=== PATIENT | female | born 1960 | race Caucasian/White ===

== ENCOUNTER 2017-01-12 10:48 | Observation (INO) ==
[2017-01-12] MEDS ORDERED: *HR* Morphine 2 MG/ML SYRINGE IVP ONE (10:59)
[2017-01-12] MEDS ORDERED: Albuterol 2.5 MG/3 ML NEBULIZER IH ONE (10:59)
[2017-01-12] MEDS ORDERED: Ondansetron 4 MG/2 ML VIAL IVP ONE (10:59)
[2017-01-12] MEDS ORDERED: Ipratropium/Albuterol Neb 3 ML IH ONE (10:59)
--- NOTE | 2017-01-12 11:02 | Emergency Department Note ---
Disposition Clinical Impression: COPD exacerbation, Influenza B Disposition: Admitted As Inpatient Condition: Good Referrals: Trev Torres, PHYSICAL METEOROLOGIST [Primary Care Provider] - Forms: ED Satisfaction Letter Time of Disposition: 12:37 SOB HPI - General Chief Complaint: ED Chest Pain Stated Complaint: chest pain, shortness of breath Time Seen by Provider: 01/12/17 10:51 Source: patient Mode of arrival: ambulatory Limitations: no limitations Nursing Notes Reviewed: Yes Vital Signs Reviewed: Yes - History of Present Illness 56-year-old white female presents complaining of cough, shortness of breath, and chest pain. Her symptoms started on Thursday with a sore throat, rhinorrhea, and cough. She was short of breath on Thursday with wheezing. She was using her nebulizer without relief. She does wear oxygen at night with her CPAP. Around 10:30 today she developed some sharp pain in her left anterior chest a and lateral to her left breast. The pain is sharp, worse with coughing. No arm or neck pain. He is at level IX. No leg pain or leg swelling. Pt Subjective Complaint: shortness of breath, cough, chest pain Onset (ago): day(s) Context: recent illness (4) Severity: moderate Consistency/Duration: constant Improves with: oxygen, rest Worsens with: coughing Known history of: COPD Associated symptoms: Reports: denies other symptoms Treatment prior to arrival: oxygen, bronchodilator Cough present: Yes Cough Description: Involuntary Cough Frequency: Intermittent Sputum production: No - Related Data Home oxygen amount: 2 liters (At night only) Previous Rx's Medication Instructions Recorded Cholecalciferol (D-3) [Vitamin D] 1,000 unit PO DAILY #30 tablet 04/29/16 Metformin [Glucophage] 500 mg PO BIDWM #60 tablet 04/29/16 Metoprolol XL (24 HR) Succ [Toprol 25 mg PO DAILY #30 tab.er.24h 04/29/16 XL] Allergies Allergy/AdvReac Type Severity Reaction Status Date / Time No Known Allergies Allergy Verified 05/18/15 11:38 All systems ED: reviewed and negative except as stated. Constitutional: Denies: fever, chills Eyes: Denies: eye discharge ENT ED: Reports: throat pain, other (Rhinorrhea). Denies: ear pain Cardiovascular: Reports: chest pain Respiratory: Reports: cough, dyspnea, wheezes. 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 Absent: scleral icterus, conjunctival injection - ENT ENT exam: normal oropharynx, mucous membranes moist, TM's normal bilaterally - Neck Neck exam: Present: normal inspection, full ROM, trachea midline. Absent: lymphadenopathy - Chest Chest inspection: Present: normal inspection, symmetric chest wall rise - Respiratory Respiratory exam: Present: wheezes (Mild bilateral expiratory, diffuse.), prolonged expiratory phase, other (Decreased breath sounds in the bases bilaterally.). Absent: accessory muscle use - Cardiovascular Cardiovascular exam: Present: regular rate, tachycardia. Absent: systolic murmur, diastolic murmur, gallop - Abdominal Exam Abdominal exam: Present: soft, Non-Tender - Extremities Exam Extremities exam: Present: normal inspection, full ROM, normal capillary refill. Absent: tenderness, pedal edema, calf tenderness - Neurological Exam Neurological exam: Present: alert, oriented X3, normal gait. Absent: motor sensory deficit - Psychiatric Psychiatric exam: Present: normal affect, anxious - Skin Skin exam: Present: warm, dry, intact, normal color. Absent: cyanosis, diaphoresis Course - Reevaluation(s) Reevaluation #1: Discussed with Dr. Gupta. He has accepted patient for admission. Time: 12:36 Vital Signs Temperature 99.9 F H 01/12/17 10:51 Pulse Rate 108 01/12/17 10:51 Respiratory Rate 22 01/12/17 10:51 Blood Pressure 137/58 01/12/17 10:51 O2 Sat by Pulse Oximetry 83 01/12/17 10:51 Temperature 99.9 F H 01/12/17 10:55 Pulse Rate 110 01/12/17 12:15 Respiratory Rate 24 01/12/17 12:15 Blood Pressure 151/80 01/12/17 12:15 O2 Sat by Pulse Oximetry 90 01/12/17 12:15 Oxygen Delivery Oxygen Delivery Nasal Cannula Shortness of Breath/Dyspnea - MDM Narrative Medical decision making narrative: Differential includes but is not limited to COPD exacerbation, bronchitis, pneumonia, pneumothorax, pleurisy, congestive heart failure, unstable angina, myocardial infarction. The patient does have influenza B. There is no evidence of pneumonia. I think she has a COPD exacerbation secondary to her influenza B infection. She has been given hand-held nebulizers 3 as well as IV Solu-Medrol. She is breathing somewhat better. She has an oxygen requirement. There is no evidence of congestive heart failure. There is no evidence of pneumothorax. I think her chest pain is pleuritic or chest wall in origin. - Lab Data Lab results reviewed: Yes I reviewed the patient's lab results. Result diagrams: 01/12/17 11:06 01/12/17 11:06 Lab Results 01/12/17 01/12/17 01/12/17 Range/Units 10:51 11:06 11:06 WBC 5.7 (4.3-11.1) K/mcL RBC 5.39 H (3.82-4.97) M/mcL Hgb 15.4 (11.5-15.4) g/dL Hct 45.2 H (35.3-44.9) % MCV 83.9 (83.0-100.0) fL MCH 28.6 (28.0-33.3) pg MCHC 34.1 (31.6-35.5) g/dL RDW 12.6 (11.5-14.5) % Plt Count 176 (140-400) K/mcL MPV 10.6 (9.4-12.4) fL Immature Gran % 0.2 (0-4) % Seg Neutrophils % 68.3 % Lymphocytes % 23.6 % Monocytes % 7.2 % Eosinophils % 0.2 % Basophils % 0.5 % Neutrophils # 3.9 (1.6-8.9) K/mcL Lymphocytes # 1.3 (0.6-4.6) K/mcL Monocytes # 0.4 (0.0-1.3) K/mcL Eosinophils # 0.0 (0.0-0.6) K/mcL Basophils # 0.0 (0.0-0.2) K/mcL ABG pH 7.38 (7.32-7.45) pH Units ABG pCO2 49 H (35-45) mmHg ABG pO2 48 L* (85-104) mmHg ABG HCO3 29 H (21-27) mEQ/L ABG Total CO2 30.5 H (20-26) mEq/L ABG O2 Saturation 82 L (95-98) % ABG Base Excess 2.9 (-2.0 to 3.0) mEq/L Blood Gas Modality RA Sodium 134 L (136-145) mEq/L Potassium 3.1 L (3.5-4.5) mEq/L Chloride 90 L (98-109) mEq/L Carbon Dioxide 29 (19-29) mEq/L BUN 7 (7-20) mg/dL Creatinine 0.76 (0.57-1.11) mg/dL Est GFR ( Amer) > 60 (> 60) Est GFR (Non-Af Amer) > 60 (> 60) BUN/Creatinine Ratio 9 (6-26) Glucose 369 H (70-99) mg/dL Calculated Osmolality 291 (280-300) Calcium 8.9 (8.6-10.8) mg/dL Total Bilirubin 0.3 (0.2-1.2) mg/dL AST 27 (5-34) Units/L ALT 21 (0-55) Units/L Alkaline Phosphatase 108 (38-126) Units/L Troponin I (0-0.03) ng/mL B-Natriuretic Peptide (0-100) pg/mL Serum Total Protein 7.2 (6.0-8.3) g/dL Albumin 3.4 L (3.5-5.0) g/dL Globulin 3.8 H (2.4-3.5) g/dL Albumin/Globulin Ratio 0.9 L (1.1-2.2) 01/12/17 01/12/17 Range/Units 11:06 11:06 WBC (4.3-11.1) K/mcL RBC (3.82-4.97) M/mcL Hgb (11.5-15.4) g/dL Hct (35.3-44.9) % MCV (83.0-100.0) fL MCH (28.0-33.3) pg MCHC (31.6-35.5) g/dL RDW (11.5-14.5) % Plt Count (140-400) K/mcL MPV (9.4-12.4) fL Immature Gran % (0-4) % Seg Neutrophils % % Lymphocytes % % Monocytes % % Eosinophils % % Basophils % % Neutrophils # (1.6-8.9) K/mcL Lymphocytes # (0.6-4.6) K/mcL Monocytes # (0.0-1.3) K/mcL Eosinophils # (0.0-0.6) K/mcL Basophils # (0.0-0.2) K/mcL ABG pH (7.32-7.45) pH Units ABG pCO2 (35-45) mmHg ABG pO2 (85-104) mmHg ABG HCO3 (21-27) mEQ/L ABG Total CO2 (20-26) mEq/L ABG O2 Saturation (95-98) % ABG Base Excess (-2.0 to 3.0) mEq/L Blood Gas Modality Sodium (136-145) mEq/L Potassium (3.5-4.5) mEq/L Chloride (98-109) mEq/L Carbon Dioxide (19-29) mEq/L BUN (7-20) mg/dL Creatinine (0.57-1.11) mg/dL Est GFR ( Amer) (> 60) Est GFR (Non-Af Amer) (> 60) BUN/Creatinine Ratio (6-26) Glucose (70-99) mg/dL Calculated Osmolality (280-300) Calcium (8.6-10.8) mg/dL Total Bilirubin (0.2-1.2) mg/dL AST (5-34) Units/L ALT (0-55) Units/L Alkaline Phosphatase (38-126) Units/L Troponin I 0.02 (0-0.03) ng/mL B-Natriuretic Peptide 14 (0-100) pg/mL Serum Total Protein (6.0-8.3) g/dL Albumin (3.5-5.0) g/dL Globulin (2.4-3.5) g/dL Albumin/Globulin Ratio (1.1-2.2) - Radiology Data Radiology results reviewed: Yes I reviewed the patient's radiology results. ITS Impressions Chest X-Ray 01/12/17 10:59 IMPRESSION: 1. Mild vascular congestion without overt failure. D/ / 01/12/2017 11:37:16 Carmen Mahoney MD / hero Interpreting Provider: Carmen Mahoney MD - EKG Data EKG attestation: Yes I reviewed and interpreted this EKG. EKG results narrative: Sinus tachycardia, rate 107, left atrial enlargement, nonspecific ST-T changes. Rhythm strip shows sinus tachycardia with rate 107, irritable bladder and 80 ms, QRS 105 ms with no other ectopy as interpreted by me. This is compared to tracing dated 04/28/16, no significant change.
[2017-01-12 11:13] LABS: Basophils % 0.5 %; Eosinophils % 0.2 %; Hematocrit 45.2 % (35.3-44.9); Hemoglobin 15.4 g/dL (11.5-15.4); Immature Granulocytes % 0.2 % (0-4); Lymphocytes # 1.3 K/mcL (0.6-4.6); Lymphocytes % 23.6 %; Mean Corpuscular HGB Conc 34.1 g/dL (31.6-35.5); Mean Corpuscular Hemoglobin 28.6 pg (28.0-33.3); Mean Corpuscular Volume 83.9 fL (83.0-100.0); Mean Platelet Volume 10.6 fL (9.4-12.4); Monocytes # 0.4 K/mcL (0.0-1.3); Monocytes % 7.2 %; Neutrophils # 3.9 K/mcL (1.6-8.9); Platelet Count 176 K/mcL (140-400); Red Blood Count 5.39 M/mcL (3.82-4.97); Red Cell Distribution Width 12.6 % (11.5-14.5); Segmented Neutrophils % 68.3 %
[2017-01-12 11:24] LABS: ABG PCO2 49 mmHg (35-45); ABG PH 7.38 pH Units (7.32-7.45)
[2017-01-12 11:25] LABS: ABG PO2 48 mmHg (85-104)
[2017-01-12 11:26] LABS: ABG Base Excess 2.9 mEq/L (-2.0 to 3.0); ABG HCO3 29 mEQ/L (21-27); ABG Oxygen Saturation 82 % (95-98); ABG TCO2 30.5 mEq/L (20-26)
[2017-01-12 11:29] LABS: Alanine Aminotransferase 21 Units/L (0-55); Albumin 3.4 g/dL (3.5-5.0); Albumin/Globulin Ratio 0.9 (1.1-2.2); Alkaline Phosphatase 108 Units/L (38-126); Aspartate Amino Transferase 27 Units/L (5-34); BUN/Creatinine Ratio 9 (6-26); Bilirubin,Total 0.3 mg/dL (0.2-1.2); Blood Urea Nitrogen 7 mg/dL (7-20); Calcium 8.9 mg/dL (8.6-10.8); Carbon Dioxide 29 mEq/L (19-29); Chloride 90 mEq/L (98-109); Globulin 3.8 g/dL (2.4-3.5); Glucose 369 mg/dL (70-99); Osmolality,Calculated 291 (280-300); Potassium 3.1 mEq/L (3.5-4.5); Sodium 134 mEq/L (136-145); Total Protein 7.2 g/dL (6.0-8.3); eGFR For African Americans > 60 (> 60); eGFR For Non-African Americans > 60 (> 60)
[2017-01-12] MEDS ORDERED: *HR* HYDROcodone/Acet 5/325 mg TABLET PO ONE (11:53)
[2017-01-12] MEDS ORDERED: Ipratropium/Albuterol Neb 3 ML IH SCH ×2 (13:40→16:00)
[2017-01-12] MEDS ORDERED: Naloxone 0.4 MG/ML INJ IVP PRN (13:40)
[2017-01-12] MEDS ORDERED: D5% in Water 1,000 ML IVC PRN (13:59)
[2017-01-12] MEDS ORDERED: Dextrose Gel 15 GM PO PRN ×2 (13:59)
[2017-01-12] MEDS ORDERED: *HR* Dextrose 50 % in Water (Syg) 50 ML SYRINGE IVP PRN (13:59)
--- NOTE | 2017-01-12 15:53 | Internal Med History&Physical ---
Date of Encounter: 01/12/17 Time of Encounter: 15:35 Assessment and Plan (1) Influenza B Current visit: Yes Status: Acute She has been started on Tamiflu. Further workup will be done as needed. (2) Hypokalemia Current visit: Yes Status: Acute She will be given supplemental potassium. Follow-up labs will be done in a.m. Internal Medicine - H&P: HPI Chief complaint: Cough, dyspnea, fever Admitted From: Home Plans for Post Hospital Care: Home History of present illness: Ms. Hooks is a 56 year old female who came to emergency room stating she had onset of nonproductive cough, fever, and rhinorrhea with worsening dyspnea on January 09. She did not seek medical attention. She continued home albuterol nebulizer treatment. When she did not improved she came to emergency room today for evaluation. She was found to have influenza B and was admitted to [facility] floor for ongoing care needs. She states she took a flu shot fall 2015. Her respiratory history is significant for having smoked since age 12 up to 2-1/2 packs per day. She has a diagnosis of COPD and wears oxygen at home as needed. She has a diagnosis of FAIZA and wears CPAP at bedtime. Past Med Surg Social Fam HX - Past Medical History Medical history: COPD, diabetes, hyperlipidemia, hypertension, other Psychiatric history: anxiety, depression - Past Surgical History Surgical History: cholecystectomy, hysterectomy - Social History Smoking Status: Former smoker Smokeless Tobacco Status: No Alcohol use: none Drug use: none - Family History Son Adopted: No Family Member Ethnicity: Non- Living Status: Still Living Hx Family Cardiac Disorders: No Hx Family Respiratory Disorders: No Hx Family Cancer: No Hx Family GI Disorders: No Hx Family Endocrine Disorder: No Hx Family Neuromuscular Disorders: No Hx Family Neurologic Disorders: No Hx Family HEENT Disorders: No Hx Family Autoimmune Disorders: No Internal Medicine - H&P: Meds Cholecalciferol (D-3) [Vitamin D] 1,000 unit PO DAILY #30 tablet 04/29/16 [Rx] Metformin [Glucophage] 500 mg PO BIDWM #60 tablet 04/29/16 [Rx] Metoprolol XL (24 HR) Succ [Toprol XL] 25 mg PO DAILY #30 tab.er.24h 04/29/16 [ Rx] Allergies No Known Allergies Allergy (Verified 05/18/15 11:38) All Systems PM: A 10-system review of systems was performed and is negative for pertinent findings except as documented above in the HPI. Review of systems: Gen.: Her weight has been stable at approximately 96 kg since the April 2016 hospitalization. Cardiovascular: She has history of hypertension. She thinks she has history of CHF but she had echocardiogram done March 2014 which showed LVEF of 60% with no significant valvular abnormalities. She had a nuclear medicine stress test also at that time which showed no ischemic changes and LVEF of 56%. She denies DVT or pulmonary embolus. Respiratory: As per history of present illness GI: She has had cholecystectomy but denies disorders of her liver or exocrine pancreas : She had acute kidney injury in 2013 with full return of function with conservative treatment. She denies other kidney or bladder disorders. Neurologic: He has a history of migraine headaches many years ago. She denies large distribution strokes or seizures. Endocrine: She was diagnosed with DM 2 approximately 2012. She denies thyroid disease or hyperlipidemia Hematology/oncology: She denies blood disorders cancers or anemia Psychiatric: She has history of anxiety and depression Musk skeletal: She has DJD denies gout or other bone joint or muscle disorders. - Constitutional Vitals: Temp Pulse Resp BP Pulse Ox 99.0 F 101 20 132/65 92 01/12/17 13:40 01/12/17 13:40 01/12/17 15:09 01/12/17 13:40 01/12/17 15:09 Exam: General: She is well-developed well-nourished female who appears in no significant distress at present time. HEENT: Head is atraumatic and normal cephalic. Eyes: EOMI. There is no scleral icterus. Mouth: Mucosa is moist. Neck: Supple and nontender. There is no thyromegaly or adenopathy noted. Heart: Regular without murmurs gallops or ectopics. Lungs: She has diminished breath sounds diffusely. There is no egophony or wheezing. Abdomen: Soft and nontender. No masses or guarding are noted. Extremities: There is no cyanosis edema or clubbing noted. Dorsalis pedis and posterior tibial pulses are 1-2 over 2 bilaterally. Neurologic: Mental status: She is talkative and a good historian. Cranial nerves: Smile is symmetric. Forehead wrinkles bilaterally. Tongue protrudes midline. EOMI. Motor: There is no pronator drift. Cerebellar: Finger to nose is intact bilaterally. Skin: Warm and dry Internal Med - H&P Results - Labs CBC & Chem 7: 01/12/17 11:06 01/12/17 11:06
[2017-01-12] MEDS ORDERED: Albuterol 2.5 MG/3 ML NEBULIZER IH PRN (16:01)
[2017-01-12] MEDS: PredniSONE 10 MG TABLET PO SCH (16:59)
[2017-01-12] MEDS: Insulin LISPRO 300 UNITS/3 ML VIAL SQ SCH (17:00)
--- NOTE | 2017-01-12 19:03 | Electrocardiograph Report ---
[address] [address] Test Date: 2017-01-12 Pat Name: Betsy Hooks Department: [id number] Room: [facility] Gender: F Approver: [id number] : 1960 Requested By: Yuriy Cobb Order Number: [id number] Reading MD: Justin Collins MD Measurements Intervals [place] Rate: 107 P: 76 PA: 180 QRS: 56 QRSD: 105 T: 73 QT: 405 QTc: 468 Interpretive Statements SINUS TACHYCARDIA BASELINE ARTIFACT LEFT ATRIAL ENLARGEMENT Electronically Signed On 01-12-2017 19:02:02 EDT by Justin Collins MD
[2017-01-12] MEDS: Acetaminophen 325 MG TABLET PO PRN (20:28)
[2017-01-12] MEDS ORDERED: Insulin LISPRO 300 UNITS/3 ML VIAL SQ SCH (21:00)
[2017-01-13] MEDS ORDERED: Benzonatate 100 MG CAPSULE PO SCH (03:45)
[2017-01-13 06:56] LABS: Basophils % 0.2 %; Hematocrit 45.3 % (35.3-44.9); Hemoglobin 15.7 g/dL (11.5-15.4); Immature Granulocytes % 0.4 % (0-4); Lymphocytes # 1.1 K/mcL (0.6-4.6); Mean Corpuscular HGB Conc 34.7 g/dL (31.6-35.5); Mean Corpuscular Volume 83.7 fL (83.0-100.0); Mean Platelet Volume 10.7 fL (9.4-12.4); Monocytes # 0.4 K/mcL (0.0-1.3); Monocytes % 7.9 %; Neutrophils # 3.3 K/mcL (1.6-8.9); Platelet Count 186 K/mcL (140-400); Red Blood Count 5.41 M/mcL (3.82-4.97); Red Cell Distribution Width 12.2 % (11.5-14.5); Segmented Neutrophils % 69.5 %
[2017-01-13] MEDS: PredniSONE 10 MG TABLET PO SCH (07:00)
[2017-01-13] MEDS: Acetaminophen 325 MG TABLET PO PRN (07:00)
[2017-01-13] MEDS: Insulin LISPRO 300 UNITS/3 ML VIAL SQ SCH (07:01)
[2017-01-13 07:02] LABS: BUN/Creatinine Ratio 16 (6-26); Blood Urea Nitrogen 10 mg/dL (7-20); Calcium 9.3 mg/dL (8.6-10.8); Carbon Dioxide 29 mEq/L (19-29); Chloride 94 mEq/L (98-109); Glucose 265 mg/dL (70-99); Osmolality,Calculated 292 (280-300); Potassium 3.3 mEq/L (3.5-4.5); Sodium 137 mEq/L (136-145); eGFR For African Americans > 60 (> 60); eGFR For Non-African Americans > 60 (> 60)
--- NOTE | 2017-01-13 08:27 | Discharge Summary ---
Date of Encounter: 01/13/17 Time of Encounter: 08:20 - Discharge Diagnosis (1) Influenza B Priority: Primary Status: Acute (2) Hypokalemia Priority: Secondary Status: Acute - Discharge Medications Prescriptions: Metoprolol XL (24 HR) Succ [Toprol XL] 25 mg PO DAILY #30 tab.er.24h Oseltamivir [Tamiflu] 75 mg PO BID #8 capsule Potassium Chloride 20 meq PO DAILY #30 tab.er.prt Home Medications: Cholecalciferol (D-3) [Vitamin D] 1,000 unit PO DAILY #30 tablet 04/29/16 [Rx] Metformin [Glucophage] 500 mg PO BIDWM #60 tablet 04/29/16 [Rx] Metoprolol XL (24 HR) Succ [Toprol Xl] 25 mg PO DAILY #30 tab.er.24h 04/29/16 [ Rx] Metoprolol XL (24 HR) Succ [Toprol XL] 25 mg PO DAILY #30 tab.er.24h 01/13/17 [ Rx] Oseltamivir [Tamiflu] 75 mg PO BID #8 capsule 01/13/17 [Rx] Potassium Chloride 20 meq PO DAILY #30 tab.er.prt 01/13/17 [Rx] Allergies/Adverse Reactions: Allergies No Known Allergies Allergy (Verified 05/18/15 11:38) Date of admission: 01/12/17 13:06 Primary care physician: Trev Torres CNP - Patient Status Disposition: Home, Self-Care Condition: Good Overall status at discharge: patient is progressing back to baseline - Discharge Instructions Follow Up With: Trev Torres CNP [Primary Care Provider] - 1 week - Diet and Activity Activity: resume usual activities as tolerated, wear oxygen at all times Diet: advance to your usual diet Hospital course: Ms. Hooks is a 56 year old female who came to emergency room stating she had onset of nonproductive cough, fever, and rhinorrhea with worsening dyspnea on January 09. She did not seek medical attention. She continued home albuterol nebulizer treatment. When she did not improved she came to emergency room today for evaluation. She was found to have influenza B and was admitted to [facility] for ongoing care needs. Initial orders were written by the emergency room physician. I saw her on January 12 and performed a history and physical. She was started on Tamiflu and her temperature improved. She had minimally productive cough throughout the hospitalization. Her vital signs remained stable otherwise except for occasional tachycardia. She will be started on Toprol XL at discharge to improve blood pressure control and lower heart rate. She will continue her other blood pressure medications as at home. She was started on supplemental potassium for hypokalemia. She will continue KCl 20 mEq daily at discharge. She was encouraged to remain a nonsmoker. She will continue with oxygen 24/7 at home. She will follow with her PCP Trev Torres CNP within 1 week. - Time Spent with Patient Total time spent providing and/or coordinating discharge services: - Constitutional Vitals: Temp Pulse Resp BP Pulse Ox 99.0 F 96 18 137/69 94 01/13/17 04:45 01/13/17 04:45 01/13/17 04:45 01/13/17 04:45 01/13/17 04:45
[2017-01-13 12:07] VITALS: BP 140/68
== END 2017-01-13 11:20 | disposition home or self-care (01) ==
LOC: EMEROOPIK 10:48 → INPPIK 10:48
PROVIDERS: ADMIT Internal Medicine; ATTEND Internal Medicine

== ENCOUNTER 2017-01-16 17:18 | Observation (INO) ==
[2017-01-16 18:20] LABS: Basophils % 0.3 %; Eosinophils % 0.2 %; Hematocrit 44.2 % (35.3-44.9); Hemoglobin 15.5 g/dL (11.5-15.4); Immature Granulocytes % 0.3 % (0-4); Lymphocytes # 2.7 K/mcL (0.6-4.6); Lymphocytes % 18.2 %; Mean Corpuscular HGB Conc 35.1 g/dL (31.6-35.5); Mean Corpuscular Hemoglobin 28.8 pg (28.0-33.3); Monocytes # 0.7 K/mcL (0.0-1.3); Monocytes % 4.4 %; Neutrophils # 11.4 K/mcL (1.6-8.9); Platelet Count 229 K/mcL (140-400); Red Blood Count 5.39 M/mcL (3.82-4.97); Red Cell Distribution Width 11.9 % (11.5-14.5); Segmented Neutrophils % 76.6 %
[2017-01-16 18:31] LABS: Alanine Aminotransferase 15 Units/L (0-55); Albumin 3.4 g/dL (3.5-5.0); Albumin/Globulin Ratio 0.8 (1.1-2.2); Alkaline Phosphatase 109 Units/L (38-126); Aspartate Amino Transferase 17 Units/L (5-34); BUN/Creatinine Ratio 10 (6-26); Bilirubin,Total 0.9 mg/dL (0.2-1.2); Blood Urea Nitrogen 7 mg/dL (7-20); Calcium 9.1 mg/dL (8.6-10.8); Carbon Dioxide 31 mEq/L (19-29); Chloride 92 mEq/L (98-109); Globulin 4.2 g/dL (2.4-3.5); Glucose 259 mg/dL (70-99); Lipase 8 Units/L (8-78); Osmolality,Calculated 289 (280-300); Potassium 2.5 mEq/L (3.5-4.5); Sodium 136 mEq/L (136-145); Total Protein 7.6 g/dL (6.0-8.3); eGFR For African Americans > 60 (> 60); eGFR For Non-African Americans > 60 (> 60)
[2017-01-16] MEDS ORDERED: 0.9 % Sodium Chloride 1,000 ML IVC ONE (18:31)
--- NOTE | 2017-01-16 18:32 | Emergency Department Note ---
Disposition Clinical Impression: Abdominal pain, COPD (chronic obstructive pulmonary disease), FAIZA (obstructive sleep apnea), Hypokalemia Disposition: Admitted As Inpatient Condition: Fair Time of Disposition: 19:13 (obsv rachel) Abdominal Pain HPI - General Chief Complaint: ED Abdominal Pain Stated Complaint: difficulty in breathing, abd pain Source: patient Mode of arrival: ambulatory Limitations: no limitations Nursing Notes Reviewed: Yes Vital Signs Reviewed: Yes - History of Present Illness HPI Narrative: Patient comes in complaining of symptoms since she was discharged with flulike symptoms since Thursday not been able to eat or drink paste that she has been eating or drinking at least a week since she is unable to keep anything down she denies any fevers or chills she denies any joint aches states that she just aches all over states her belly hurts denies any blurred vision double vision loss is noticed weakness rashes or lesions Pt Subjective Complaint: abdominal pain, other (recent pneumonia) Onset (ago): week(s) (1) Consistency: constant Location: diffuse Pain Severity: severe Pain Scale: 10 Quality: cramping Improves with: nothing Worsens with: nothing Associated symptoms: Reports: nausea, vomiting, diarrhea, fever, other (diarrhea ). Denies: chills, constipation, dysuria, hematemesis, hematochezia, melena, hematuria, anorexia, syncope Treatments prior to arrival: NSAIDs, prescription analgesics, other (antibiotics ) - Related Data Previous Rx's Medication Instructions Recorded Metformin [Glucophage] 500 mg PO BIDWM #60 tablet 04/29/16 Metoprolol XL (24 HR) Succ [Toprol 25 mg PO DAILY #30 tab.er.24h 01/13/17 XL] Oseltamivir [Tamiflu] 75 mg PO BID #8 capsule 01/13/17 Potassium Chloride 20 meq PO DAILY #30 tab.er.prt 01/13/17 Allergies Allergy/AdvReac Type Severity Reaction Status Date / Time No Known Allergies Allergy Verified 01/16/17 17:19 All systems ED: reviewed and negative except as stated. Constitutional: Reports: fever, chills, weakness Eyes: Denies: eye pain, eye discharge ENT ED: Reports: congestion. Denies: ear pain, throat pain Cardiovascular: Denies: chest pain, palpitations Respiratory: Reports: cough, dyspnea, wheezes, sputum production Gastrointestinal: Reports: abdominal pain, nausea, vomiting, diarrhea Genitourinary: Denies: urgency, dysuria, frequency Musculoskeletal: Denies: back pain, neck pain Integumentary: Denies: abrasion, lesions Neurological: Denies: headache Psychiatric: Denies: anxiety, depression Endocrine: Reports: fatigue Hematological/Lymphatic: Denies: easy bleeding Allergic/Immunologic: Denies: urticaria Abdominal Pain PMH - Past Medical History Medical history: Reports: COPD, diabetes, hyperlipidemia, hypertension, other Female Surgical History: Reports: cholecystectomy, other 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: Reports: no 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 Psychiatric history: Reports: anxiety, depression - Social History Smoking status: Former smoker Alcohol use: Reports: none Drug use: Reports: none Physical Exam - General Limitations: no limitations General appearance: alert, in no apparent distress, anxious - Head Head exam: atraumatic, normocephalic, normal inspection - Eye Eye exam: Present: normal appearance, PERRL, EOMI - ENT ENT exam: normal exam, normal oropharynx, mucous membranes moist, normal external ear exam - Neck Neck exam: Present: normal inspection, full ROM, trachea midline - Chest Chest inspection: Present: normal inspection, symmetric chest wall rise - Respiratory Respiratory exam: Present: normal lung sounds bilaterally - Cardiovascular Cardiovascular exam: Present: regular rate, normal rhythm, normal heart sounds - Abdominal Exam Abdominal exam: Present: soft, Non-Tender, distention, guarding, normal bowel sounds. Absent: mass, pulsatile mass - Extremities Exam Extremities exam: Present: normal inspection, full ROM, normal capillary refill. Absent: tenderness, joint swelling - Expanded Lower Extremity Exam Neurovascular/Tendon exam: Present: normal capillary refill, normal fine/light touch Gait: observed and normal - Back Exam Back exam: Present: normal inspection, full ROM. Absent: muscle spasm - Neurological Exam Neurological exam: Present: alert, oriented X3, CN II-XII intact, normal gait - Psychiatric Psychiatric exam: Present: normal affect, normal mood - Skin Skin exam: Present: warm, dry, intact, normal color Course Course Narrative: They should seem given IV fluids patient was noted to have hypokalemia occurring she is given a potassium rider admitted for observation because the decreased potassium transferred to [facility] - Reevaluation(s) Reevaluation #1: Patient's been up to the bathroom O times patient was given pain medication patient was noted to have hypokalemia as a result patient was given medication admitted for observation Vital Signs Temperature 97.6 F 01/16/17 17:21 Pulse Rate 101 01/16/17 17:21 Respiratory Rate 20 01/16/17 17:21 Blood Pressure 134/63 01/16/17 17:21 O2 Sat by Pulse Oximetry 89 01/16/17 17:21 Temperature 97.6 F 01/16/17 17:23 Pulse Rate 89 01/16/17 20:40 Respiratory Rate 18 01/16/17 20:40 Blood Pressure 127/59 01/16/17 20:40 O2 Sat by Pulse Oximetry 92 01/16/17 20:40 Oxygen Delivery Oxygen Delivery Nasal Cannula Abdominal Pain - Differential Diagnosis Differential Diagnosis: Likely: abdominal pain non-specific - Medical Records Medical records reviewed: Yes I reviewed the patient's medical records. - Lab Data Lab results reviewed: Yes I reviewed the patient's lab results. Result diagrams: 01/16/17 17:55 01/16/17 17:55 Lab Results 01/16/17 01/16/17 01/16/17 Range/Units 17:55 17:55 17:55 WBC 14.9 H D (4.3-11.1) K/mcL RBC 5.39 H (3.82-4.97) M/mcL Hgb 15.5 H (11.5-15.4) g/dL Hct 44.2 (35.3-44.9) % MCV 82.0 L (83.0-100.0) fL MCH 28.8 (28.0-33.3) pg MCHC 35.1 (31.6-35.5) g/dL RDW 11.9 (11.5-14.5) % Plt Count 229 (140-400) K/mcL MPV 11.0 (9.4-12.4) fL Immature Gran % 0.3 (0-4) % Seg Neutrophils % 76.6 % Lymphocytes % 18.2 % Monocytes % 4.4 % Eosinophils % 0.2 % Basophils % 0.3 % Neutrophils # 11.4 H (1.6-8.9) K/mcL Lymphocytes # 2.7 (0.6-4.6) K/mcL Monocytes # 0.7 (0.0-1.3) K/mcL Eosinophils # 0.0 (0.0-0.6) K/mcL Basophils # 0.0 (0.0-0.2) K/mcL PT (9.4-12.1) Seconds INR APTT 27.6 (26.0-36.0) Seconds Sodium 136 (136-145) mEq/L Potassium 2.5 L* (3.5-4.5) mEq/L Chloride 92 L (98-109) mEq/L Carbon Dioxide 31 H (19-29) mEq/L BUN 7 (7-20) mg/dL Creatinine 0.73 (0.57-1.11) mg/dL Est GFR ( Amer) > 60 (> 60) Est GFR (Non-Af Amer) > 60 (> 60) BUN/Creatinine Ratio 10 (6-26) Glucose 259 H (70-99) mg/dL Calculated Osmolality 289 (280-300) Calcium 9.1 (8.6-10.8) mg/dL Total Bilirubin 0.9 (0.2-1.2) mg/dL AST 17 (5-34) Units/L ALT 15 (0-55) Units/L Alkaline Phosphatase 109 (38-126) Units/L Troponin I (0-0.03) ng/mL Serum Total Protein 7.6 (6.0-8.3) g/dL Albumin 3.4 L (3.5-5.0) g/dL Globulin 4.2 H (2.4-3.5) g/dL Albumin/Globulin Ratio 0.8 L (1.1-2.2) Lipase 8 (8-78) Units/L 01/16/17 01/16/17 Range/Units 17:55 17:55 WBC (4.3-11.1) K/mcL RBC (3.82-4.97) M/mcL Hgb (11.5-15.4) g/dL Hct (35.3-44.9) % MCV (83.0-100.0) fL MCH (28.0-33.3) pg MCHC (31.6-35.5) g/dL RDW (11.5-14.5) % Plt Count (140-400) K/mcL MPV (9.4-12.4) fL Immature Gran % (0-4) % Seg Neutrophils % % Lymphocytes % % Monocytes % % Eosinophils % % Basophils % % Neutrophils # (1.6-8.9) K/mcL Lymphocytes # (0.6-4.6) K/mcL Monocytes # (0.0-1.3) K/mcL Eosinophils # (0.0-0.6) K/mcL Basophils # (0.0-0.2) K/mcL PT 12.2 H (9.4-12.1) Seconds INR 1.1 APTT (26.0-36.0) Seconds Sodium (136-145) mEq/L Potassium (3.5-4.5) mEq/L Chloride (98-109) mEq/L Carbon Dioxide (19-29) mEq/L BUN (7-20) mg/dL Creatinine (0.57-1.11) mg/dL Est GFR ( Amer) (> 60) Est GFR (Non-Af Amer) (> 60) BUN/Creatinine Ratio (6-26) Glucose (70-99) mg/dL Calculated Osmolality (280-300) Calcium (8.6-10.8) mg/dL Total Bilirubin (0.2-1.2) mg/dL AST (5-34) Units/L ALT (0-55) Units/L Alkaline Phosphatase (38-126) Units/L Troponin I 0.02 (0-0.03) ng/mL Serum Total Protein (6.0-8.3) g/dL Albumin (3.5-5.0) g/dL Globulin (2.4-3.5) g/dL Albumin/Globulin Ratio (1.1-2.2) Lipase (8-78) Units/L - Radiology Data Radiology results reviewed: Yes I reviewed the patient's radiology results. ITS Impressions Abdomen/Pelvis CT 01/16/17 17:59 IMPRESSION: No acute process D/ / Ramiro Moore MD / Ramiro Moore MD Interpreting Provider: Ramiro Moore MD Chest CT 01/16/17 17:59 IMPRESSION: No acute process D/ / Ramiro Moore MD / Ramiro Moore MD Interpreting Provider: Ramiro Moore MD - EKG Data EKG attestation: Yes I reviewed and interpreted this EKG. EKG results narrative: Sinus nonspecific T waves rate 93 [place] 188 QRS 108 QT 369 axis XIX Critical Care Time Critical Care Time: Yes Total Critical Care Time: 15 Attestation: Critical care performed:15 mins as result of patient having hypokalemia patient symptomatic with that patient admitted for IV potassium supplementation because the risk of cardiac arrhythmias with low potassium Time is exclusive of separately billable procedures. Time includes: direct patient care, patient reassessment, coordination of patient care, interpretation of data (laboratory data, radiology data, and respiratory data), review of patient's medical records, medical consultation and documentation of patient care. Procedures included in critical care time: Procedures excluded from critical care time:
[2017-01-16 18:44] LABS: INR 1.1; Prothrombin Time 12.2 Seconds (9.4-12.1)
[2017-01-16] MEDS ORDERED: *HR* HYDROmorphone (PF) 1 MG/ML SYRINGE IVP ONE (19:48)
[2017-01-16] MEDS ORDERED: *HR* Promethazine 25 MG/ML VIAL IVP ONE (19:48)
[2017-01-16] MEDS ORDERED: 0.9 % Sodium Chloride 1,000 ML ONE (20:13)
[2017-01-16] MEDS ORDERED: Ondansetron 4 MG/2 ML VIAL IVP PRN (21:11)
[2017-01-16] MEDS ORDERED: *HR* Dextrose 50 % in Water (Syg) 50 ML SYRINGE IVP PRN (21:11)
[2017-01-16] MEDS ORDERED: Naloxone 0.4 MG/ML INJ IVP PRN (21:11)
[2017-01-16] MEDS ORDERED: Ibuprofen 400 MG TABLET PO PRN (21:11)
[2017-01-16] MEDS ORDERED: Dextrose Gel 15 GM PO PRN ×2 (21:11)
[2017-01-16] MEDS ORDERED: D5% in Water 1,000 ML IVC PRN (21:11)
[2017-01-16] MEDS: Acetaminophen 325 MG TABLET PO PRN (23:05)
[2017-01-16] MEDS: 0.9 % Sodium Chloride 1,000 ML IVC SCH (23:09)
[2017-01-17] MEDS: Albuterol 2.5 MG/3 ML NEBULIZER IH PRN ×2 (04:22→09:36)
[2017-01-17 06:03] LABS: Basophils % 0.3 %; Eosinophils # 0.1 K/mcL (0.0-0.6); Eosinophils % 0.6 %; Hematocrit 43.2 % (35.3-44.9); Hemoglobin 14.8 g/dL (11.5-15.4); Immature Granulocytes % 0.3 % (0-4); Lymphocytes % 23.6 %; Mean Corpuscular HGB Conc 34.3 g/dL (31.6-35.5); Mean Corpuscular Hemoglobin 28.8 pg (28.0-33.3); Mean Corpuscular Volume 84.2 fL (83.0-100.0); Mean Platelet Volume 10.6 fL (9.4-12.4); Monocytes # 0.7 K/mcL (0.0-1.3); Monocytes % 5.2 %; Neutrophils # 8.8 K/mcL (1.6-8.9); Platelet Count 224 K/mcL (140-400); Red Blood Count 5.13 M/mcL (3.82-4.97)
[2017-01-17 06:22] LABS: INR 1.1; Prothrombin Time 11.8 Seconds (9.4-12.1)
[2017-01-17 06:23] LABS: BUN/Creatinine Ratio 8 (6-26); Carbon Dioxide 31 mEq/L (19-29); Chloride 99 mEq/L (98-109); Glucose 270 mg/dL (70-99); Osmolality,Calculated 301 (280-300); Sodium 142 mEq/L (136-145); eGFR For African Americans > 60 (> 60); eGFR For Non-African Americans > 60 (> 60)
[2017-01-17 06:25] LABS: Activated Partial Thrombo Time 26.6 Seconds (26.0-36.0)
[2017-01-17 06:40] LABS: Blood Urea Nitrogen 5 mg/dL (7-20)
[2017-01-17] MEDS: Acetaminophen 325 MG TABLET PO PRN (09:01)
[2017-01-17] MEDS ORDERED: *HR* Promethazine 25 MG/ML VIAL IVP ONE (09:35)
[2017-01-17] MEDS: *HR* Metformin 500 MG TABLET PO SCH ×2 (09:49→17:17)
[2017-01-17] MEDS: Insulin LISPRO 300 UNITS/3 ML VIAL SQ SCH ×3 (09:49→17:45)
[2017-01-17] MEDS: Metoprolol XL (24 HR) Succ 25 MG TAB.ER.24H PO SCH (09:49)
[2017-01-17] MEDS: 0.9 % Sodium Chloride 1,000 ML IVC SCH (11:16)
--- NOTE | 2017-01-17 14:50 | Internal Med History&Physical ---
Date of Encounter: 01/17/17 Time of Encounter: 14:20 Assessment and Plan (1) Influenza B Current visit: No Status: Acute She states she had 2 Tamiflu pills left when she came to emergency room yesterday. She has been given Tamiflu since admission and it will now be discontinued. (2) Abdominal pain Current visit: Yes Status: Acute She states it is present in the epigastric and mid abdominal area now. CT done in the emergency room did not show significant pathology. Observe without further workup or treatment at this time. Qualifiers: Abdominal location: generalized Qualified Code(s): R10.84 - Generalized abdominal pain (3) DM type 2 (diabetes mellitus, type 2) Current visit: No Status: Chronic Hemoglobin A1c was 9.0% on 01/13/2017. Will do Accu-Cheks with SSI. 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 Recheck in a.m. (5) Low TSH level Current visit: Yes Status: Acute TSH was suppressed to 0.24 on 04/29/2016. We will recheck in a.m. Internal Medicine - H&P: HPI Chief complaint: Nausea and diarrhea Admitted From: Home Plans for Post Hospital Care: Home History of present illness: Ms. Hooks is a 56 year old female who came to emergency room stating she had nausea but no vomiting, intermitted abdominal pain, and diarrhea since she left the hospital January 13. She had been admitted January 12 with the diagnosis of influenza B. She was given Tamiflu during and after discharge. She was also started on Toprol-XL and supplemental potassium. She states she had almost no food intake after her arrival home until she came back emergency room. She reports running fevers 103 at home and having chills. She states her cough is productive of greenish sputum. She states her stools were loose watery brown in color. She describes abdominal pain as an ache in her mid abdominal area. She was evaluated and emergency room again and found to have significant hypokalemia. She had leukocytosis with left shift the differential. She was admitted to [facility] floor for ongoing care needs. She states she did not miss any of her prescribed medications at home. She denies vomiting. She did not note hematochezia or melena. Past Med Surg Social Fam HX - Past Medical History Medical history: COPD, diabetes, hyperlipidemia, hypertension, other Psychiatric history: anxiety, depression - Past Surgical History Surgical History: cholecystectomy, hysterectomy - Social History Smoking Status: Former smoker Packs per day: 2 Smokeless Tobacco Status: No Alcohol use: none Drug use: none - Family History Son Adopted: No Family Member Ethnicity: Non- Living Status: Still Living Hx Family Cardiac Disorders: No Hx Family Respiratory Disorders: No Hx Family Cancer: No Hx Family GI Disorders: No Hx Family Endocrine Disorder: No Hx Family Neuromuscular Disorders: No Hx Family Neurologic Disorders: No Hx Family HEENT Disorders: No Hx Family Autoimmune Disorders: No Internal Medicine - H&P: Meds Metformin [Glucophage] 500 mg PO BIDWM #60 tablet 04/29/16 [Rx] Metoprolol XL (24 HR) Succ [Toprol XL] 25 mg PO DAILY #30 tab.er.24h 01/13/17 [ Rx] Oseltamivir [Tamiflu] 75 mg PO BID #8 capsule 01/13/17 [Rx] Potassium Chloride 20 meq PO DAILY #30 tab.er.prt 01/13/17 [Rx] Allergies No Known Allergies Allergy (Verified 01/17/17 00:29) All Systems PM: A 10-system review of systems was performed and is negative for pertinent findings except as documented above in the HPI. Review of systems: Gen.: Her weight has been stable at approximately 96 kg since the April 2016 hospitalization. Cardiovascular: She has history of hypertension. She thinks she has history of CHF but she had echocardiogram done March 2014 which showed LVEF of 60% with no significant valvular abnormalities. She had a nuclear medicine stress test also at that time which showed no ischemic changes and LVEF of 56%. She denies DVT or pulmonary embolus. Respiratory: She smoked since age 12 up to 2-1/2 packs per day. She has a diagnosis COPD and wears oxygen at home when necessary. She has a diagnosis of FAIZA and wear CPAP at bedtime. She was hospitalized a few days ago with influenza B infection. GI: She has had cholecystectomy but denies disorders of her liver or exocrine pancreas : She had acute kidney injury in 2013 with full return of function with conservative treatment. She denies other kidney or bladder disorders. Neurologic: He has a history of migraine headaches many years ago. She denies large distribution strokes or seizures. Endocrine: She was diagnosed with DM 2 approximately 2012. She denies thyroid disease or hyperlipidemia Hematology/oncology: She denies blood disorders cancers or anemia Psychiatric: She has history of anxiety and depression Musk skeletal: She has DJD denies gout or other bone joint or muscle disorders. - Constitutional Vitals: Temp Pulse Resp BP Pulse Ox 98.8 F 58 18 112/66 93 01/17/17 11:35 01/17/17 11:35 01/17/17 11:35 01/17/17 11:35 01/17/17 11:35 Exam: Gen.: She is a well-developed well-nourished female who appears in minimal distress at present time. She complains of mild abdominal pain. HEENT: Head is atraumatic and normocephalic. Eyes: EOMI. There is no scleral icterus. Mouth: Mucosa is moist. Neck: Supple and nontender. There is no thyromegaly or adenopathy noted. Heart: Regular without murmurs gallops or ectopics. Lungs: No wheezes or crackles are heard. Abdomen: Bowel sounds are present but diminished. There is mild tenderness diffusely in the abdominal area. No masses or guarding are noted. Extremities: There is no cyanosis edema or clubbing noted. Dorsalis pedis and posttibial pulses are 2 over 2 bilaterally. Neurologic: Mental status: She is talkative and a good historian. Cranial nerves: Smile is symmetric. Forehead wrinkles bilaterally. Tongue protrudes midline. EOMI. Motor: There is no pronator drift. Cerebellar: Finger to nose is intact bilaterally. Skin: Warm and dry Internal Med - H&P Results - Labs CBC & Chem 7: 01/17/17 05:35 01/17/17 05:35 Labs: Short CBC 01/17/17 Range/Units 05:35 WBC 12.6 H (4.3-11.1) K/mcL Hgb 14.8 (11.5-15.4) g/dL Hct 43.2 (35.3-44.9) % Plt Count 224 (140-400) K/mcL Neutrophils # 8.8 (1.6-8.9) K/mcL BMP 01/17/17 05:35 Sodium 142 Potassium 3.0 L Chloride 99 Carbon Dioxide 31 H BUN 5 L Creatinine 0.66 Glucose 270 H Calcium 9.0
[2017-01-17] MEDS ORDERED: Promethazine 12.5 MG in 0.9 % Sodium Chloride 50 ML IVPB PRN (15:00)
[2017-01-17] MEDS ORDERED: Prochlorperazine 10 MG/2 ML VIAL IVP PRN (15:15)
[2017-01-17] MEDS: 0.45 % Sodium Chloride w/KCl 20 MEQ/1,000 ML MLS IVC SCH (15:24)
[2017-01-17] MEDS: *HR* HYDROcodone/Acet 5/325 mg TABLET PO PRN (17:36)
[2017-01-18] MEDS: 0.45 % Sodium Chloride w/KCl 20 MEQ/1,000 ML MLS IVC SCH ×3 (02:50→21:32)
[2017-01-18 05:55] LABS: Basophils % 0.3 %; Eosinophils # 0.2 K/mcL (0.0-0.6); Eosinophils % 1.6 %; Hematocrit 42.2 % (35.3-44.9); Hemoglobin 14.1 g/dL (11.5-15.4); Immature Granulocytes % 0.5 % (0-4); Lymphocytes # 2.8 K/mcL (0.6-4.6); Lymphocytes % 23.8 %; Mean Corpuscular HGB Conc 33.4 g/dL (31.6-35.5); Mean Corpuscular Hemoglobin 28.5 pg (28.0-33.3); Mean Corpuscular Volume 85.3 fL (83.0-100.0); Monocytes # 0.7 K/mcL (0.0-1.3); Monocytes % 5.6 %; Neutrophils # 8.1 K/mcL (1.6-8.9); Platelet Count 252 K/mcL (140-400); Red Blood Count 4.95 M/mcL (3.82-4.97); Red Cell Distribution Width 12.3 % (11.5-14.5); Segmented Neutrophils % 68.2 %
[2017-01-18 06:20] LABS: BUN/Creatinine Ratio 9 (6-26); Blood Urea Nitrogen 6 mg/dL (7-20); Calcium 8.4 mg/dL (8.6-10.8); Carbon Dioxide 27 mEq/L (19-29); Chloride 100 mEq/L (98-109); Glucose 234 mg/dL (70-99); Magnesium 1.5 mg/dL (1.6-2.6); Osmolality,Calculated 297 (280-300); Potassium 2.9 mEq/L (3.5-4.5); Sodium 141 mEq/L (136-145); eGFR For African Americans > 60 (> 60); eGFR For Non-African Americans > 60 (> 60)
[2017-01-18 06:42] LABS: Thyroid Stimulating Hormone 1.279 mcIU/mL (0.350-4.840)
[2017-01-18] MEDS: *HR* Metformin 500 MG TABLET PO SCH ×2 (08:43→16:46)
[2017-01-18] MEDS: Insulin LISPRO 300 UNITS/3 ML VIAL SQ SCH ×3 (08:43→16:47)
[2017-01-18] MEDS: Metoprolol XL (24 HR) Succ 25 MG TAB.ER.24H PO SCH (08:43)
--- NOTE | 2017-01-18 09:20 | Internal Med Progress Note ---
Date of Encounter: 01/18/17 Time of Encounter: 09:10 - Assessment and plan (1) Influenza B Current Visit: No Status: Acute Assessment and plan: January 18. Remain off Tamiflu. Will increase Robitussin-DM and add Tessalon and scheduled Tylenol. (2) Abdominal pain Current Visit: Yes Status: Acute Assessment and plan: January 18. As above Qualifiers: Abdominal location: generalized Qualified Code(s): R10.84 - Generalized abdominal pain (3) DM type 2 (diabetes mellitus, type 2) Current Visit: No Status: Chronic Assessment and plan: January 18. Blood sugars are elevated. Will increase Glucophage and continue Accu-Cheks with SSI. Qualifiers: Diabetes mellitus complication status: without complication Diabetes mellitus senior living insulin use: without terminologist use Qualified Code(s): E11.9 - Type 2 diabetes mellitus without complications (4) Vitamin D deficiency Current Visit: No Status: Acute Assessment and plan: January 18. Vitamin D level is pending. (5) Low TSH level Current Visit: Yes Status: Acute Assessment and plan: January 18. Resolved. Will not workup further (6) Hypokalemia Current Visit: Yes Status: Acute Assessment and plan: January 18. She states she has not been taking potassium at home as had been prescribed. I will give her K rider today and increase oral dose. Recheck labs in a.m. (7) Hypomagnesemia Current Visit: Yes Status: Acute Assessment and plan: January 18. We will order magnesium oxide. - Subjective Interval history: January 18. She has no new complaints. She states she is still coughing with little productivity. She has abdominal and flank pain from the coughing. She has had nausea but no vomiting. - Constitutional Vitals: Temp Pulse Resp BP Pulse Ox 97.9 F 96 18 136/70 86 01/18/17 06:35 01/18/17 06:35 01/18/17 09:03 01/18/17 06:35 01/18/17 09:03 Exam: She is sitting on the side of the bed and appears minimally dyspneic. She has occasional coughing during examination. Her abdomen shows mild tenderness to palpation in the epigastric area. Her affect is bright and cheerful. I reviewed her medications and lab results. Internal Medicine: Result - Labs CBC & Chem 7: 01/18/17 05:12 01/18/17 05:12 Labs: Short CBC 01/18/17 Range/Units 05:12 WBC 11.8 H (4.3-11.1) K/mcL Hgb 14.1 (11.5-15.4) g/dL Hct 42.2 (35.3-44.9) % Plt Count 252 (140-400) K/mcL Neutrophils # 8.1 (1.6-8.9) K/mcL BMP 01/18/17 05:12 Sodium 141 Potassium 2.9 L Chloride 100 Carbon Dioxide 27 BUN 6 L Creatinine 0.64 Glucose 234 H Calcium 8.4 L - ABG Interpretation ABG results: PT/INR, D-dimer PT 11.8 Seconds (9.4-12.1) 01/17/17 05:35 Consult Discharge Plan - Plan Referrals: Trev Torres, LIP CUTTER [Primary Care Provider] - 1 week
[2017-01-18] MEDS ORDERED: Benzonatate 100 MG CAPSULE PO PRN (09:26)
[2017-01-18] MEDS: Magnesium Oxide 400 MG TABLET PO SCH ×2 (11:18→20:52)
[2017-01-18] MEDS: *HR* HYDROcodone/Acet 5/325 mg TABLET PO PRN ×2 (11:20→20:55)
[2017-01-18] MEDS: Acetaminophen 325 MG TABLET PO SCH ×3 (11:50→23:17)
[2017-01-18] MEDS: Albuterol 2.5 MG/3 ML NEBULIZER IH PRN (16:58)
[2017-01-18] MEDS ORDERED: Insulin LISPRO 300 UNITS/3 ML VIAL SQ SCH (21:00)
[2017-01-19] MEDS: Albuterol 2.5 MG/3 ML NEBULIZER IH PRN ×2 (02:03→09:39)
[2017-01-19 06:44] LABS: Basophils % 0.3 %; Eosinophils # 0.2 K/mcL (0.0-0.6); Eosinophils % 1.9 %; Hematocrit 39.1 % (35.3-44.9); Immature Granulocytes % 0.6 % (0-4); Lymphocytes # 2.9 K/mcL (0.6-4.6); Lymphocytes % 27.9 %; Mean Corpuscular HGB Conc 33.2 g/dL (31.6-35.5); Mean Corpuscular Hemoglobin 28.6 pg (28.0-33.3); Mean Corpuscular Volume 86.1 fL (83.0-100.0); Mean Platelet Volume 10.5 fL (9.4-12.4); Monocytes # 0.7 K/mcL (0.0-1.3); Monocytes % 6.8 %; Neutrophils # 6.5 K/mcL (1.6-8.9); Platelet Count 271 K/mcL (140-400); Red Blood Count 4.54 M/mcL (3.82-4.97); Red Cell Distribution Width 12.2 % (11.5-14.5); Segmented Neutrophils % 62.5 %
[2017-01-19 07:02] LABS: BUN/Creatinine Ratio 14 (6-26); Blood Urea Nitrogen 8 mg/dL (7-20); Calcium 8.2 mg/dL (8.6-10.8); Carbon Dioxide 27 mEq/L (19-29); Chloride 102 mEq/L (98-109); Glucose 232 mg/dL (70-99); Osmolality,Calculated 296 (280-300); Potassium 3.5 mEq/L (3.5-4.5); Sodium 140 mEq/L (136-145); eGFR For African Americans > 60 (> 60); eGFR For Non-African Americans > 60 (> 60)
[2017-01-19 07:31] VITALS: BP 131/79
[2017-01-19] MEDS: 0.45 % Sodium Chloride w/KCl 20 MEQ/1,000 ML MLS IVC SCH (08:02)
[2017-01-19] MEDS: Acetaminophen 325 MG TABLET PO SCH (08:03)
--- NOTE | 2017-01-19 08:58 | Electrocardiograph Report ---
[address] [address] Test Date: 2017-01-16 Pat Name: Betsy Hooks Department: [id number] Room: [facility] Gender: F Accountant Assistant: [id number] : 1960 Requested By: Nasima Magana Order Number: [id number] Reading MD: Justin Collins MD Measurements Intervals [place] Rate: 93 P: 76 AZ: 188 QRS: 19 QRSD: 108 T: 62 QT: 369 QTc: 420 Interpretive Statements SINUS RHYTHM Poor R wave progression BASELINE ARTIFACT Electronically Signed On 01-19-2017 8:57:02 EDT by Justin Collins MD
[2017-01-19] MEDS: *HR* Metformin 500 MG TABLET PO SCH (09:13)
[2017-01-19] MEDS: Magnesium Oxide 400 MG TABLET PO SCH (09:14)
[2017-01-19] MEDS: Metoprolol XL (24 HR) Succ 25 MG TAB.ER.24H PO SCH (09:14)
[2017-01-19] MEDS: Insulin LISPRO 300 UNITS/3 ML VIAL SQ SCH (09:14)
--- NOTE | 2017-01-19 10:09 | Discharge Summary ---
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 insulin use: without surface grinder tender use Qualified Code(s): E11.9 - Type 2 diabetes mellitus without complications (4) Vitamin D deficiency Priority: Secondary Status: Acute (5) Low TSH level Priority: Secondary Status: Resolved (6) Hypokalemia Priority: Secondary Status: Resolved (7) Hypomagnesemia Priority: Secondary Status: Acute - Discharge Medications Prescriptions: Benzonatate [Tessalon] 100 mg PO TID PRN #12 capsule PRN Reason: Cough Magnesium Oxide [Mag-Ox] 400 mg PO BID #14 tablet Metformin [Glucophage] 1,000 mg PO BIDWM #28 tablet Potassium Chloride 20 meq PO BID #14 tab.er.prt Home Medications: Metoprolol XL (24 HR) Succ [Toprol Xl] 25 mg PO DAILY #30 tab.er.24h 01/13/17 [ Rx] Benzonatate [Tessalon] 100 mg PO TID PRN #12 capsule 01/19/17 [Rx] Magnesium Oxide [Mag-Ox] 400 mg PO BID #14 tablet 01/19/17 [Rx] Metformin [Glucophage] 1,000 mg PO BIDWM #28 tablet 01/19/17 [Rx] Potassium Chloride 20 meq PO BID #14 tab.er.prt 01/19/17 [Rx] Allergies/Adverse Reactions: Allergies No Known Allergies Allergy (Verified 01/17/17 00:29) Date of admission: 01/16/17 20:39 Primary care physician: Trev Torres CNP Consults: 01/17/17 00:02 Consult to Nutrition [CONS] Routine Comment: Consulting Provider: NUTRITION Reason for Dietary Consult: Other Consult to Composition Floor Setter [CONS] Routine Reason for SW Consult: needs home O2 & home resp. services - Patient Status Disposition: Home, Self-Care Condition: Fair Overall status at discharge: patient is progressing back to baseline - Discharge Instructions Follow Up With: Trev Torres CNP [Primary Care Provider] - 1 week - Diet and Activity Activity: resume usual activities as tolerated, wear oxygen at all times Diet: advance to your usual diet Hospital course: Ms. Hooks is a 56 year old female who came to emergency room stating she had nausea but no vomiting, intermitted abdominal pain, and diarrhea since she left the hospital January 13. She had been admitted January 12 with the diagnosis of influenza B. She was given Tamiflu during and after discharge. She was also started on Toprol-XL and supplemental potassium. She states she had almost no food intake after her arrival home until she came back emergency room. She reports running fevers 103 at home and having chills. She states her cough is productive of greenish sputum. She states her stools were loose watery brown in color. She describes abdominal pain as an ache in her mid abdominal area. She was evaluated and emergency room again and found to have significant hypokalemia. She had leukocytosis with left shift the differential. She was admitted to [facility] floor for ongoing care needs. Initial orders were written by the emergency room physician. I saw her on January 17 and performed a history and physical. She was given Tamiflu on admission to complete 5 day course. Her dyspnea improved. Leukocytosis resolved with WBC 10.4 on the day of discharge and resolution of the left shift. She remained afebrile after the first hospital day. Her abdominal pain lessened. She was able to tolerate adequate amount of food and fluids. Repeat TSH returned normal at 1.279. Hypokalemia responded to omental potassium with normal level of 3.5 on the day of discharge. She will continue 20 mEq twice a day. I gave her a one-week supply at discharge. Magnesium level returned low at 1.5. She was started on magnesium oxide. I gave her one-week supply at discharge. She will follow with her PCP Trev Torres CNP within 1 week. I encouraged her to remain a nonsmoker. - Time Spent with Patient Total time spent providing and/or coordinating discharge services: - Constitutional Vitals: Temp Pulse Resp BP Pulse Ox 97.4 F L 83 20 131/79 94 01/19/17 07:27 01/19/17 07:27 01/19/17 09:39 01/19/17 07:27 01/19/17 09:39
== END 2017-01-19 11:25 | disposition home or self-care (01) ==
LOC: EMEROOPIK 17:18 → INPPIK 17:18
PROVIDERS: ADMIT Internal Medicine; ATTEND Internal Medicine